=== PATIENT | male | born 1945 | race Caucasian/White ===

== ENCOUNTER 2017-01-07 10:22 | Outpatient (CLI) | payer MEDICARE ==
--- NOTE | 2017-01-07 12:44 | RAD ---
RIGHT KNEE FOUR VIEWS HISTORY: Right knee pain without trauma. Chronic pain. COMPARISON: None. FINDINGS: No acute fracture or malalignment. There is a moderate suprapatellar joint effusion. No significan t narrowing. Minimal osteophyte formation. IMPRESSION: Moderate to large sized suprapatellar effusion with underlying osseous abnormality suggesting manager internship al derangement. MRI recommended. POS: [facility]
== END 2017-01-07 10:23 | disposition home or self-care (01) ==
LOC: MADRAD 10:22
PROVIDERS: ATTEND Obstetrics & Gynecology
DX: M25.561 Pain in right knee (principal); M25.461 Effusion, right knee